=== PATIENT | male | born 1980 | race Caucasian/White ===

== ENCOUNTER 2022-07-12 16:02 | Outpatient (REF) | payer OTHER, SELFPAY ==
[2022-07-12 16:24] LABS: MANUAL DIFF FLAG NO
[2022-07-12 17:16] LABS: Basophils Absolute Auto 0.1 X10*3/uL (0.0-0.2); Basophils Percent Auto 0.6 % (0-2); Eosinophils Absolute Auto 0.1 X10*3/uL (0.0-0.4); Eosinophils Percent Auto 0.7 % (0-4); Hemoglobin 15.3 g/dl (14.0-18.0); Imm Gran Abs Auto 0.03 X10*3/uL (0.00-0.03); Imm Gran Pct Auto 0.4 % (0.0-0.4); Lymphocytes Absolute Auto 2.1 X10*3/uL (1.2-4.9); Lymphocytes Percent Auto 25.7 % (20-40); Mean Corpuscular HGB Conc 34.8 g/dl (31.0-36.0); Mean Corpuscular Hemoglobin 29.7 pg (27.0-33.0); Mean Corpuscular Volume 85.3 fL (80.0-98.0); Mean Platelet Volume 10.2 fL (9.4-12.4); Monocytes Absolute Auto 0.6 X10*3/uL (0.1-1.2); Monocytes Percent Auto 6.8 % (2-11); Neutrophils Absolute Auto 5.4 x10*3/uL (2.0-8.3); Neutrophils Percent Auto 65.8 % (45-73); Platelet Count 291 X10*3/uL (160-400); Red Blood Count 5.16 X10*6/uL (4.60-5.80); Red Cell Distribution Width 13.5 % (11.0-16.0); White Blood Count 8.2 X10*3/uL (4.8-10.8)
[2022-07-12 18:01] LABS: Alanine Aminotransferase 32 U/L (0-40); Albumin Level 4.9 g/dL (3.5-5.0); Alkaline Phosphatase 90 U/L (39-117); Anion Gap 14 (12-20); Aspartate Amino Transferase 30 U/L (5-37); Bilirubin Total 0.9 mg/dL (0.0-1.0); Blood Urea Nitrogen 20 mg/dL (9-16); Calcium 9.8 mg/dL (8.4-10.2); Carbon Dioxide 26 mmol/L (22-29); Chloride 108 mmol/L (96-108); Cholesterol 159 mg/dL; Estimated Glomerular Filt Rate > 60; Glucose Random 88 mg/dL (60-115); HDL Cholesterol 41 mg/dL; LDL Cholesterol Calculated 73 mg/dl; Sodium 144 mmol/L (135-145); Total Protein 7.6 g/dL (6.5-8.0); Triglycerides 227 mg/dL
[2022-07-12 18:15] LABS: Free T4 (Free Thyroxine) 1.06 ng/dL (0.71-1.85); Prostate Specific Antigen 1.03 ng/mL (<0.05-4.0); Thyroid Stimulating Hormone 3.17 uIU/mL (0.32-4.0)
[2022-07-14 05:24] LABS: Follicle Stimulating Hormone 4.7 mIU/mL (1.6-8.0); Lutenizing Hormone 2.8 mIU/mL (1.5-9.3)
[2022-07-14 06:39] LABS: Triiodothyronine T3 Free 3.4 pg/mL (2.3-4.2)
[2022-07-18 08:29] LABS: Lipoprotein A 27 nmol/L (<75)
[2022-07-18 15:58] LABS: Apolipoprotein A1 156 mg/dL (>=115); Apolipoprotein B 78 mg/dL (<90)
[2022-07-18 20:53] LABS: Testosterone, Free 33.9 pg/mL (35.0-155.0); Testosterone, Total 209 ng/dL (250-1100)
[2022-07-21 01:09] LABS: Dihydrotestosterone 17 ng/dL (12-65)
[2022-07-22 20:44] LABS: Estradiol Free 0.47 pg/mL; Estradiol, Ultrasensitive 23 pg/mL (< OR = 29)
== END 2022-07-12 16:03 | disposition home or self-care (01) ==
LOC: HO.LAB 16:02
PROVIDERS: PCP Internal Medicine; Visit Provider Internal Medicine
DX: Z12.5 Encounter for screening for malignant neoplasm of prostate (principal); E03.9 Hypothyroidism, unspecified; I51.9 Heart disease, unspecified; E11.9 Type 2 diabetes mellitus without complications; D64.9 Anemia, unspecified; E78.5 Hyperlipidemia, unspecified; K76.0 Fatty (change of) liver, not elsewhere classified; R53.83 Other fatigue; E78.9 Disorder of lipoprotein metabolism, unspecified
CPT/HCPCS: 36415; 80053; 80061; 82172; 82642; 82670; 82681; 83001; 83002; 83695; 84153; 84402; 84403; 84439; 84443; 84481; 85025

== ENCOUNTER 2022-09-18 12:03 | Emergency (ER) | payer OTHER, SELFPAY ==
--- NOTE | ~2022-09-18 | XR_ITS ---
EXAMINATION: XR KNEE, LEFT CLINICAL INFORMATION: Left knee pain, status post injury COMPARISON: None available. TECHNIQUE: Four views of the left knee. FINDINGS: No evidence for bony fracture or dislocation. Slight narrowing in the medial joint space compartment. No osteochondral lesions or erosions. There is a small suprapatellar effusion. Patellar spurring observed. XR/XR knee LT 4V IMPRESSION: 1. No evidence for bony fracture or dislocation. Small suprapatellar effusion. 2. Degenerative changes.
[2022-09-18 12:59] VITALS: BP 144/77; PULSE 69; RESP 19; TEMP 36.6; O2SAT 98; BMI 31.4
--- NOTE | 2022-09-18 13:01 | ED.LOWEXIN ---
HPI - Extremity Injury (Lower) General Chief Complaint: Extremity Injury, Lower Stated Complaint: L knee inj Time Seen by Provider: 09/18/22 13:42 Source: patient Mode of arrival: ambulatory Limitations: no limitations History of Present Illness HPI Narrative: Patient is a 42 year old assigned male at with no reported medical history presenting to the emergency department today with left knee pain. Patient states that he has had knee pain for weeks but today while squatting at the gym, he felt a pop in his left knee and now he is having much more pain. Patient denies any head strike or loss of consciousness, dizziness, lightheadedness, abdominal pain, nausea, vomiting, fever, chills, blurry vision, double vision, loss of vision, chest pain, difficulty breathing, shortness of breath, back pain, night sweats, pain with urination, increased urinary frequency, increased urinary urgency, blood in his urine or stool, syncope or a near syncopal episode, bowel incontinence, bladder incontinence, bowel retention, bladder retention, or any other complaints at this time. MD complaint: knee injury Severity: mild Severity scale (1-10): 3 Relieving factors: nothing Exacerbating factors: nothing Associated symptoms: snap/pop sensation Related Data Allergies Allergy/AdvReac Type Severity Reaction Status Date / Time No Known Allergies Allergy Unverified 12/11/19 16:04 Review of Systems Constitutional: Constitutional: Reports no additional constitutional complaints, Denies chills, Denies fever(s) and Denies night sweats Eyes: Eyes: Reports no additional eye complaints, Denies blurry vision, Denies change in vision, Denies diplopia, Denies eye discharge, Denies loss of vision and Denies eye pain ENT: Denies dizziness Cardiovascular: Cardiovascular: Reports no additional cardiovascular complaints, Denies chest pain, Denies lightheadedness, Denies Loss of Consciousness and Denies dyspnea Respiratory: Respiratory: Reports no additional respiratory complaints and Denies dyspnea Gastrointestinal: Gastrointestinal: Reports no additional gastrointestinal complaints, Denies abdominal pain, Denies melena, Denies hematochezia, Denies change in bowel habits and Denies change in stool character Genitourinary: Genitourinary: Reports no additional male genitourinary complaints, Denies hematuria, Denies oliguria, Denies difficulty urinating, Denies dysuria, Denies urinary frequency, Denies urinary hesitancy, Denies urinary incontinence and Denies urinary urgency Musculoskeletal: Musculoskeletal: Reports no additional musculoskeletal complaints, Denies numbness and Denies tingling Comments: left knee pain Neurologic: Denies dizziness, Denies loss of vision, Denies numbness and Denies tingling Psychiatric: Psychiatric: Reports no additional psychiatric complaints Endocrine: Endocrine: Reports no additional endocrine complaints Hematologic/Lymphatic: Hematologic/Lymphatic: Reports no additional hematologic/lymphatic complaints Allergic/Immunologic: Allergic/Immunologic: Reports no additional allergic/immunologic complaints [facility] Past Medical History Attestation statement: The following information was validated with the patient. Source: old records reviewed and nursing notes reviewed Social History Social History Advance Directives: No Advance Directives Information Provided: Yes Physical Exam Vital Signs: Vital Signs: Last Vital Signs Temp 98 F 09/18/22 12:59 Pulse 69 09/18/22 12:59 Resp 19 09/18/22 12:59 BP 144/77 H 09/18/22 12:59 Pulse Ox 98 09/18/22 12:59 BMI result Body Mass Index 31.4 Const: General: cooperative, no acute distress, alert and awake Nutritional Appearance: well nourished Orientation/consciousness: patient oriented x3 Limitations: no limitations HEENT: Head: Yes normal to inspection and Yes atraumatic Ears: hearing grossly normal bilaterally and external ears normal General nose exam: Normal external nose present, no nasal discharge noted and no epistaxis Face and sinus: Yes normal facial exam, No abrasion and No laceration Mouth: Normal oral and palatal mucosa present, no drooling and no muffled voice Eyes: General: appearance normal, both eyes and all related structures Periorbital: periorbital findings normal Eyelids: Yes eyelids normal Conjunctivae: conjunctivae normal Pupils: Equal, round and reactive pupils present EOM: EOMs intact bilaterally Neck: Neck: Yes normal visual inspection, Yes full ROM and Yes no lymphadenopathy Chest: Chest palpation & inspection: normal inspection of the chest Resp: Effort & Inspection: normal respiratory effort and able to speak in complete sentences Auscultation: clear to auscultation bilaterally Cardio: Rate: regular rate Rhythm: regular rhythm GI: Inspection: Yes normal to inspection Neuro: General: patient oriented x3 and moves all extremities Cranial nerves: Yes Equal, round and reactive pupils present Cognition (Neuro): normal cognition Motor exam (neuro): 5/5 motor strength present throughout Sensory Exam: Normal double simultaneous stimulation for sensation Coordination: [id number] test normal Extrem: General: Yes normal to inspection, Yes full ROM and Yes capillary refill normal Psych: Appearance: grossly normal Mental Status: mental status grossly normal Affect: normal affect Attitude: cooperative Thought process: Normal thought process present Thought content: Normal thought content present Insight: Good insight present (Psych) Course Course Course Narrative: RME - 42 yo male presents to the ER for evaluation of left knee pain after he felt a pop while working out at the gym today. Ambulatory into triage. Plan: X-ray knee Medical Decision Making Medical Decision Making MDM Narrative: Patient is a 42 year old assigned male at with no reported medical history presenting to the emergency department today with left knee pain. Patient's physical exam was unremarkable. Patient's left knee x-ray showed a small effusion but was otherwise unremarkable. I explained my physical exam findings as well as all test results to the patient. I answered all questions asked by the patient. I stressed the importance of the patient taking his medication as prescribed. I stressed the importance of the patient following up with his primary care provider and if the pain persists, an orthopedic provider. I stressed the importance of the patient returning to the emergency department immediately if his symptoms were to worsen or if he were to develop any dizziness, shortness of breath, difficulty breathing, chest pain, blurry vision, loss of vision, nausea, vomiting, abdominal pain, fever, chills, back pain, or any other complaints. Patient verbalized agreement and understanding with this treatment plan and discharge. Differential Diagnosis Differential Diagnoses: The differential diagnosis associated with the presentation includes Meniscus injury MCL injury LCL injury Knee pain Knee sprain ACL injury PCL injury Fracture Independent Interpretation I performed an independent interpretation of an: Plain X-Ray Interpretation: My interpretation is in agreement with the radiologist's impression of this imaging study. EXAMINATION: XR KNEE, LEFT CLINICAL INFORMATION: Left knee pain, status post injury? COMPARISON: None available.? TECHNIQUE: Four views of the left knee. FINDINGS: No evidence for bony fracture or dislocation. Slight narrowing in the medial joint space compartment. No osteochondral lesions or erosions. There is a small suprapatellar effusion. Patellar spurring observed.? XR/XR knee LT 4V IMPRESSION: 1.? No evidence for bony fracture or dislocation. Small suprapatellar effusion. 2.? Degenerative changes. Dictated By: Sanjay Huerta Signed By: Electronically signed by Sanjay Huerta 09/18/22 1321 Discharge Plan Discharge Clinical Impression: Knee sprain Patient Disposition: Home, Self-Care Instructions: Knee Sprain (DC), How to Use an Elastic Bandage (ED) Additional Instructions: Follow up with your primary care provider and an orthopedic provider if the pain persists. Return to the emergency department immediately if your symptoms worsen or if you develop any dizziness, shortness of breath, difficulty breathing, chest pain, blurry vision, loss of vision, nausea, vomiting, abdominal pain, fever, chills, back pain, or any other complaints. Referrals: [facility] [place] [facility] [Provider Group] (Call to establish and follow up with an orthopedic provider if your pain persists >1 week. ) Donald Napoles MD [Primary Care Provider] - Stand Alone Forms: Work/School Release Interventions: ED Discharge Assessment Last Done: 09/18/22 14:00 Discharge Date/Time: 09/18/22 14:01 Print Language: Cuban
== END 2022-09-18 14:01 | disposition home or self-care (01) ==
PROVIDERS: Emergency Provider Emergency Medicine; PCP Internal Medicine
DX: S83.92XA Sprain of unspecified site of left knee, initial encounter (principal); X50.9XXA Other and unspecified overexertion or strenuous movements or postures, initial encounter; Y93.B9 Activity, other involving muscle strengthening exercises; Y92.39 Other specified sports and athletic area as the place of occurrence of the external cause; Y99.9 Unspecified external cause status
CPT/HCPCS: 73564; 99283

== ENCOUNTER 2022-10-30 11:35 | Outpatient (REF) | payer OTHER, SELFPAY ==
[2022-10-30 11:52] LABS: MANUAL DIFF FLAG NO
[2022-10-30 12:28] LABS: Basophils Percent Auto 0.4 % (0-2); Eosinophils Absolute Auto 0.1 X10*3/uL (0.0-0.4); Eosinophils Percent Auto 0.7 % (0-4); Hematocrit 45.1 % (42.0-52.0); Hemoglobin 15.6 g/dl (14.0-18.0); Imm Gran Abs Auto 0.03 X10*3/uL (0.00-0.03); Imm Gran Pct Auto 0.4 % (0.0-0.4); Lymphocytes Absolute Auto 1.4 X10*3/uL (1.2-4.9); Mean Corpuscular HGB Conc 34.6 g/dl (31.0-36.0); Mean Corpuscular Hemoglobin 29.8 pg (27.0-33.0); Mean Corpuscular Volume 86.2 fL (80.0-98.0); Mean Platelet Volume 10.6 fL (9.4-12.4); Monocytes Absolute Auto 0.6 X10*3/uL (0.1-1.2); Monocytes Percent Auto 8.2 % (2-11); Neutrophils Absolute Auto 5.4 x10*3/uL (2.0-8.3); Neutrophils Percent Auto 71.3 % (45-73); Platelet Count 234 X10*3/uL (160-400); Red Blood Count 5.23 X10*6/uL (4.60-5.80); Red Cell Distribution Width 13.3 % (11.0-16.0); White Blood Count 7.5 X10*3/uL (4.8-10.8)
[2022-10-30 13:36] LABS: Prostate Specific Antigen Scr 1.11 ng/mL (<0.05-4.0)
[2022-11-03 04:13] LABS: Dihydrotestosterone 27 ng/dL (12-65)
[2022-11-03 15:58] LABS: Testosterone, Free 173.7 pg/mL (35.0-155.0); Testosterone, Total 684 ng/dL (250-1100)
[2022-11-04 22:19] LABS: Estradiol Ultra Sensitive 38 pg/mL (< OR = 29)
== END 2022-10-30 11:36 | disposition home or self-care (01) ==
LOC: HO.LAB 11:35
PROVIDERS: Internal Medicine; PCP Internal Medicine; Visit Provider Physician Assistant
DX: E29.1 Testicular hypofunction (principal); D64.9 Anemia, unspecified; R97.20 Elevated prostate specific antigen [PSA]; R53.83 Other fatigue; Z12.5 Encounter for screening for malignant neoplasm of prostate
CPT/HCPCS: 36415; 82642; 82670; 84153; 84402; 84403; 85025

== ENCOUNTER 2023-12-06 11:29 | Outpatient (REF) | payer OTHER, SELFPAY ==
[2023-12-06 11:49] LABS: MANUAL DIFF FLAG NO
[2023-12-06 12:09] LABS: Basophils Absolute Auto 0.1 X10*3/uL (0.0-0.2); Basophils Percent Auto 0.8 % (0-2); Eosinophils Absolute Auto 0.1 X10*3/uL (0.0-0.4); Eosinophils Percent Auto 0.7 % (0-4); Hematocrit 45.1 % (42.0-52.0); Hemoglobin 16.6 g/dl (14.0-18.0); Imm Gran Abs Auto 0.02 X10*3/uL (0.00-0.03); Imm Gran Pct Auto 0.3 % (0.0-0.4); Lymphocytes Absolute Auto 1.3 X10*3/uL (1.2-4.9); Mean Corpuscular HGB Conc 36.8 g/dl (31.0-36.0); Mean Corpuscular Volume 84.1 fL (80.0-98.0); Mean Platelet Volume 9.9 fL (9.4-12.4); Monocytes Absolute Auto 0.4 X10*3/uL (0.1-1.2); Monocytes Percent Auto 5.4 % (2-11); Neutrophils Absolute Auto 5.4 x10*3/uL (2.0-8.3); Neutrophils Percent Auto 74.8 % (45-73); Platelet Count 275 X10*3/uL (160-400); Red Blood Count 5.36 X10*6/uL (4.60-5.80); Red Cell Distribution Width 13.8 % (11.0-16.0); White Blood Count 7.3 X10*3/uL (4.8-10.8)
[2023-12-06 12:42] LABS: Alanine Aminotransferase 25 U/L (0-40); Albumin Level 4.8 g/dL (3.5-5.0); Alkaline Phosphatase 66 U/L (39-117); Anion Gap 13 (12-20); Aspartate Amino Transferase 29 U/L (5-37); Bilirubin Total 0.8 mg/dL (0.0-1.0); Blood Urea Nitrogen 11 mg/dL (9-16); Calcium 9.8 mg/dL (8.4-10.2); Carbon Dioxide 23 mmol/L (22-29); Chloride 108 mmol/L (96-108); Cholesterol 139 mg/dL (<200); Estimated Glomerular Filt Rate > 60; Glucose Random 79 mg/dL (60-115); HDL Cholesterol 49 mg/dL (>40); Iron 139 mcg/dL (45-160); LDL Cholesterol Calculated 65 mg/dL (<100); Percent Iron Saturation 39 % (15-50); Potassium 3.8 mmol/L (3.3-5.1); Sodium 140 mmol/L (135-145); Total Iron Binding Capacity 360 mcg/dL (228-428); Total Protein 8.1 g/dL (6.5-8.0); Triglycerides 127 mg/dL (<150); Unsaturated Iron Binding 221 ug/dL
[2023-12-06 12:59] LABS: Ferritin 84 ng/mL (20-250)
[2023-12-06 13:00] LABS: Prostate Specific Antigen Scr 1.56 ng/mL (<0.05-4.0)
[2023-12-13 07:02] LABS: Estradiol Ultra Sensitive 44 pg/mL (< OR = 29)
[2023-12-15 08:49] LABS: Dihydrotestosterone 43 ng/dL (12-65)
[2023-12-17 13:08] LABS: Testosterone, Total 777 ng/dL (250-1100)
== END 2023-12-06 11:30 | disposition home or self-care (01) ==
LOC: HO.LAB 11:29
PROVIDERS: PCP Internal Medicine; Visit Provider Physician Assistant
DX: E11.9 Type 2 diabetes mellitus without complications (principal); K76.0 Fatty (change of) liver, not elsewhere classified; D64.9 Anemia, unspecified; R53.83 Other fatigue; E29.1 Testicular hypofunction; Z12.5 Encounter for screening for malignant neoplasm of prostate
CPT/HCPCS: 36415; 80053; 80061; 82642; 82670; 82728; 83540; 84153; 84402; 84403; 85025